=== PATIENT | female | born 1980 | race African-American/Black ===

== ENCOUNTER 2022-02-11 11:55 | Emergency (ER) | payer OTHER ==
[2022-02-11 12:30] LABS: BASOPHILS % (AUTO) 0.5 %; EOSINOPHILS # (AUTO) 0.3 10^3/uL (0.0-0.7); EOSINOPHILS % (AUTO) 4.3 %; HCT - HEMATOCRIT 44.2 % (37.0-47.0); HGB - HEMOGLOBIN 14.1 g/dL (12.0-16.0); LYMPHOCYTES % (AUTO) 38.9 %; MEAN CORPUSCULAR HEMOGLOBIN 30.1 pg (27.0-31.0); MEAN CORPUSCULAR HGB CONC 31.9 g/dL (32.0-36.0); MEAN CORPUSCULAR VOLUME 94.4 fL (81.0-99.0); MEAN PLATELET VOLUME 9.1 fL (7.9-10.8); MONOCYTES # (AUTO) 0.5 10^3/uL (0.0-1.0); NEUTROPHILS # (AUTO) 3.8 10^3/uL (1.5-6.6); NEUTROPHILS % (AUTO) 49.2 %; PLT - PLATELET COUNT 274 10^3/uL (130-450); RED BLOOD COUNT 4.68 10^6/uL (4.20-5.40); RED CELL DISTRIBUTION WIDTH 12.1 % (12.0-15.0); WHITE BLOOD COUNT 7.8 x10^3/uL (4.8-10.8)
[2022-02-11 12:44] LABS: ALBUMIN 4.7 g/dL (3.2-5.5); ALBUMIN/GLOBULIN RATIO 1.3 (1.0-2.2); BILIRUBIN,TOTAL 1.8 mg/dL (0.2-1.0); CREATININE 0.7 mg/dL (0.4-1.0); TOTAL PROTEIN 8.4 g/dL (6.7-8.2)
[2022-02-11 12:59] LABS: CALCIUM 9.3 mg/dL (8.5-10.3); POTASSIUM 3.6 mmol/L (3.5-5.0)
[2022-02-11 15:17] LABS: BILIRUBIN,URINE NEGATIVE (NEGATIVE); GLUCOSE, URINE (UA) NEGATIVE (NEGATIVE); KETONES,URINE (UA) NEGATIVE (NEGATIVE); LEUKOCYTE ESTERASE, URINE NEGATIVE (NEGATIVE); NITRITE,URINE NEGATIVE (NEGATIVE); OCCULT BLOOD,URINE NEGATIVE (NEGATIVE); PH,URINE 6.5 PH (5.0-7.5); PROTEIN,URINE NEGATIVE (NEGATIVE); UROBILINOGEN,URINE 0.2 (NORMAL) E.U./dL (NORMAL)
[2022-02-11] MEDS ORDERED: LIDOCAINE VISCOUS 2% 15 ML UDC MM STA (15:20)
[2022-02-11] MEDS ORDERED: MAG HYDROX/AL HYDROX/SIMETH 30 ML UDC PO STA (15:20)
[2022-02-11 15:21] LABS: CLARITY,URINE CLEAR (CLEAR); HCG UR QUAL NEGATIVE
--- NOTE | 2022-02-11 15:23 | ED Physician Documentation ---
History of Present Illness - Stated complaint Stated Complaint: ABD PX - Chief complaint Chief Complaint: Abd Pain - Additonal information Additional information: 41-year-old female presents to the emergency department for evaluation of epiga stric abdominal pain that radiates down her left side. This began about 4 days ago. Patient reports that it has been intermittent. Mostly pressure-like but sometimes burning. She states that when she previously lived in [place] she was told she had a stomach ulcer and was started on oral medication but when she moved to the [facility] she stopped taking it. She is denying melena or hematochezia. No vomiting. No fevers. Past surgical history most significant for only. She does have a history of hypertension for which she takes amlodipine. Non-smoker. No alcohol use Review of Systems Constitutional: denies: Fever, Chills Throat: reports: Reviewed and negative Cardiac: reports: Reviewed and negative Respiratory: reports: Reviewed and negative GI: reports: Abdominal Pain. denies: Nausea, Vomiting, Hematemesis, Bloody / black stool : reports: Reviewed and negative Skin: reports: Reviewed and negative PD PAST MEDICAL HISTORY - Present Medications Home Medications: Ambulatory Orders Medication Instructions Recorded Confirmed Pantoprazole [Protonix] 40 mg PO DAILY #30 tablet 02/11/22 - Allergies Allergies/Adverse Reactions: Allergies Allergy/AdvReac Type Severity Reaction Status Date / Time No Known Drug Allergies Allergy Verified 02/11/22 12:15 PD ED PE NORMAL - General General: Alert and oriented X 3, No acute distress - HEENT HEENT: PERRL - Cardiac Cardiac: RRR, No murmur - Respiratory Respiratory: No respiratory distress, Clear bilaterally - Abdomen Abdomen: Normal bowel sounds, Soft. 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 Eye Opening: Spontaneous Motor: Obeys Commands Verbal: Oriented GCS Score: 15 Results - Vitals Vitals: Vital Signs - 24 hr 02/11/22 02/11/22 02/11/22 12:13 15:29 17:00 Temperature 36.3 C L Heart Rate 67 62 63 Respiratory 14 18 19 Rate Blood Pressure 157/90 H 132/84 H 122/76 O2 Saturation 100 100 100 Oxygen O2 Source Room air - Labs Labs: Laboratory Tests 02/11/22 02/11/22 02/11/22 12:20 12:26 12:26 WBC 7.8 RBC 4.68 Hgb 14.1 Hct 44.2 MCV 94.4 MCH 30.1 MCHC 31.9 L RDW 12.1 Plt Count 274 MPV 9.1 Neut # (Auto) 3.8 Lymph # (Auto) 3.0 [place] # (Auto) 0.5 Eos # (Auto) 0.3 Baso # (Auto) 0.0 Absolute Nucleated RBC 0.00 Nucleated RBC % 0.0 Sodium 136 Potassium 3.6 Chloride 98 L Carbon Dioxide 30 Anion Gap 8.0 BUN 9 Creatinine 0.7 Estimated GFR (MDRD) 113 Glucose 88 Calcium 9.3 Total Bilirubin 1.8 H AST 15 ALT 12 Alkaline Phosphatase 43 Total Protein 8.4 H Albumin 4.7 Globulin 3.7 Albumin/Globulin Ratio 1.3 Lipase 42 Urine Color YELLOW Urine Clarity CLEAR Urine pH 6.5 Ur Specific [place] 1.010 Urine Protein NEGATIVE Urine Glucose (UA) NEGATIVE Urine Ketones NEGATIVE Urine Occult Blood NEGATIVE Urine Nitrite NEGATIVE Urine Bilirubin NEGATIVE Urine Urobilinogen 0.2 (NORMAL) Ur Leukocyte Esterase NEGATIVE Ur Microscopic Review NOT INDICATED Urine Culture Comments NOT INDICATED Urine HCG, Qual NEGATIVE - Rads (name of study) CT abd Radiology: Final report received (No urinary stone or hydroureteronephrosis. Large uterine fibroids are present.) PD MEDICAL DECISION MAKING - ED course Complexity details: reviewed results, re-evaluated patient, considered differential, d/w patient, d/w family ED course: 41-year-old female presents emergency department for 4 days of epigastric abdominal pain. Does have a history of ulcers though has not taken any acid medication since moving to [place]. No melena hematochezia. On exam she had some mild tenderness in the epigastrium as well as pain across the left flank. CBC electrolytes and urine were all essentially unremarkable. CT of the abdomen did not show any findings suggest gastric perforation diverticulitis or hydroureter nephrosis. Incidental note is made of uterine fibroids. Here in the emergency department I did give the patient some Maalox and lidocaine which markedly improved her symptoms. As such I suspect this history and exam is most consistent with gastritis. Patient will be started on Protonix. He was advised to follow closely with her primary care provider. Would benefit from referral to GI for an EGD. Departure - Departure Disposition: 01 Home, Self Care Clinical Impression: Epigastric abdominal pain Condition: Stable Record reviewed to determine appropriate education?: Yes Instructions: ED Gastritis Prescriptions: Pantoprazole [Protonix] 40 mg PO DAILY #30 tablet Comments: You are seen today for pain in your upper abdomen for a few days. You do report a history of stomach ulcers. I did give you some medicine here in the emergency department which seems to have cold your stomach. We did do a CBC, electrolytes that did not show any worrisome findings. A CT of your abdomen also did not show any worrisome findings though there is an incidental note made of uterine fibroids. As such I suspect that the cause of your symptoms is likely acid reflux or gastritis. I have sent a medication for Protonix to the [facility] in [place]. You should begin taking this every day. I recommend that you Avoid caffeine spicy foods any nicotine or alcohol products. I would like you to discuss this ED visit with your primary care provider. You would benefit from referral to a maintenance analyst or general surgeon in order to have an EGD completed. This is where a camera was placed through the mouth and into the stomach to look for ulcers. If at any point you develop sudden severe abdominal pain, begin to vomit blood, have black or bloody stools you should return to the ER for second evaluation
[2022-02-11 17:20] VITALS: BP 122/76
--- NOTE | 2022-02-11 18:07 | CT Report ---
PROCEDURE: ABDOMEN/PELVIS WO INDICATIONS: epigastric and left flank pain TECHNIQUE: Noncontrast 5 mm thick sections acquired from the diaphragms to the symphysis. 5 mm coronal and sagi ttal reformats were then performed. For radiation dose reduction, the following was used: automated exposure control, adjustment of mA and/or kV according to patient size. COMPARISON: None. FINDINGS: Image quality: Excellent. Images are denoted as (series #/image #). Visualized lung bases: No pleural effusion. Liver and biliary tree: Unremarkable noncontrast appearance. Gallbladder: No radiopaque cholelithiasis. Spleen: Unremarkable noncontrast appearance. Pancreas: Unremarkable noncontrast appearance. Adrenal glands: Unremarkable noncontrast appearance. Kidneys and ureters: No hydronephrosis. Gastrointestinal tract: No bowel obstruction. Peritoneal cavity: No free air or substantial free fluid. Bladder: Unremarkable noncontrast appearance. Pelvic organs: Large calcified uterine fibroids present. An intrauterine device is present. Vasculature: No abdominal aortic aneurysm. Musculoskeletal: Degenerative change of the spine. IMPRESSION: 1. No urinary stone or hydroureteronephrosis. 2. Large uterine fibroids are present. The uterus is not well evaluated by CT. Reviewed by: Delvin Dean MD on 02/11/2022 6:06 PM PST Approved by: Delvin Dean MD on 02/11/2022 6:06 PM PST Station ID: [id number]
== END 2022-02-11 18:57 | disposition home or self-care (01) ==
LOC: ED 11:55
DX: R10.13 Epigastric pain (principal); Z87.11 Personal history of peptic ulcer disease; D25.9 Leiomyoma of uterus, unspecified; I10 Essential (primary) hypertension; Z79.899 Other long term (current) drug therapy
CPT/HCPCS: 36415; 74176; 80053; 81003; 81025; 83690; 85025; 99282; 99284; A9270; 81001; 87086